=== PATIENT | male | born 1950 | race Caucasian/White ===

== ENCOUNTER → 2016-05-02 | Outpatient (CLI) | payer MEDICARE ==
[~2016-05-02] MED LIST: ADVIL200 MG PO; ALEVE220 MG PO; ASPIRIN EC325 MG PO; AUGMENTIN875 MG PO; ENDOCET 5-3251 EACH PO; PROSCAR5 MG PO; TESSALON PERLE100 MG PO; ZANTAC150 MG PO; ZANTAC75 M1 PO
== END | disposition home or self-care (01) ==
LOC: CDC 08:45
DX: Z01.810 Encounter for preprocedural cardiovascular examination (principal)
CPT/HCPCS: 93000

== ENCOUNTER 2016-05-05 06:25 | Day surgery (SDC) | payer OTHER, MEDICARE ==
[~2016-05-05] VITALS: Ht 170.2 cm; Wt 115.9 kg
[2016-05-05 06:47] VITALS: BP 136/81
[2016-05-05 11:30] VITALS: BP 125/78
[2016-05-05 15:55] VITALS: BP 131/80
[2016-05-05 19:45] VITALS: BP 134/65
[2016-05-05 23:49] VITALS: BP 125/63
[2016-05-06 03:23] VITALS: BP 119/68
[2016-05-06 07:15] VITALS: BP 119/69
== END 2016-05-06 12:44 | disposition home or self-care (01) ==
LOC: SDC → 2EAST 07:30 → 2SOUTH 07:30 → SDC 11:25 → 2EAST 11:29 → SDC 15:13 → 2EAST 05-06 12:44
PROC: 0VB08ZZ Excision of Prostate, Via Natural or Artificial Opening Endoscopic (ICD-10-PCS; principal; 2016-05-05)
DX: N40.1 Benign prostatic hyperplasia with lower urinary tract symptoms (principal); R39.198 Other difficulties with micturition; I10 Essential (primary) hypertension
CPT/HCPCS: 74000; 76000; 88305; G0378; J1580; J2250; J2405; J3010; J7050